=== PATIENT | female | born 1940 | race Asian ===

== ENCOUNTER 2016-11-28 20:47 | Emergency (ER) | payer MEDICARE, OTHER ==
[~2016-11-28] VITALS: Ht 162.6 cm; Wt 63.5 kg
[~2016-11-28 20:47] MED LIST: ASPI-825 PO; LISI40TA4 PO; SIMV10TA6 PO
[2016-11-28] MEDS ORDERED: DOCU250C91 PO (20:54)
[2016-11-28] MEDS ORDERED: FERR-89 PO (20:54)
[2016-11-28] MEDS ORDERED: ENTE0.5T4 PO (20:54)
[2016-11-28] MEDS ORDERED: TRAM50TA4 PO (20:54)
[2016-11-28] MEDS ORDERED: LOSA50TA37 PO (20:54)
[2016-11-28] MEDS ORDERED: DIPH25 PO (20:54)
[2016-11-28] MEDS ORDERED: ZOLP5 PO (20:54)
[2016-11-28] MEDS ORDERED: EZET10 PO (20:54)
[2016-11-28] MEDS ORDERED: CA C1TAB74 PO (20:54)
[2016-11-28 22:39] LABS: BASOPHILS % (AUTO) 0.4 % (0.0-2.0); EOSINOPHILS % (AUTO) 1.1 % (1.0-6.0); HEMOGLOBIN 12.3 g/dL (12.0-16.0); LYMPHOCYTES % (AUTO) 19.6 % (22.0-44.0); MEAN CORPUSCULAR HEMOGLOBIN 32.5 pg (26.0-34.0); MEAN CORPUSCULAR HGB CONC 34.1 G/dL (31.0-37.0); MEAN CORPUSCULAR VOLUME 95 fL (80-100); MONOCYTES # (AUTO) 0.6 K/uL (0.1-1.0); MONOCYTES % (AUTO) 12.6 % (2.0-9.0); NEUTROPHILS # (AUTO) 3.4 K/uL (1.8-7.7); NEUTROPHILS % (AUTO) 66.3 % (40.0-70.0); PLATELET COUNT (AUTO) 199 K/uL (150-450); RED BLOOD CELL COUNT(AUTO) 3.78 MIL/uL (4.00-5.20); RED CELL DISTRIBUTION WIDTH 13.7 % (11.5-14.5); WHITE BLOOD COUNT (AUTO) 5.1 K/uL (4.5-11.0)
[2016-11-28 22:49] LABS: CALCIUM, TOTAL 9.2 mg/dL (8.8-10.5); CREATININE 0.94 mg/dL (0.60-1.30); POTASSIUM 4.2 mmol/L (3.5-5.1)
[2016-11-28 22:55] LABS: TOTAL PROTEIN, SERUM 8.8 g/dL (6.4-8.2)
[2016-11-28 23:08] LABS: INR 1.1 (0.9-1.1); PROTHROMBIN TIME 11.7 SEC (9.4-11.6)
[2016-11-29 00:10] VITALS: BP 139/79
== END 2016-11-29 00:53 | disposition home or self-care (01) ==
LOC: EMS 20:48
DX: K91.841 Postprocedural hemorrhage of a digestive system organ or structure following other procedure (principal); I10 Essential (primary) hypertension; E78.00 Pure hypercholesterolemia, unspecified
CPT/HCPCS: 99284